=== PATIENT | female | born 1960 | race Caucasian/White ===

== ENCOUNTER → 2016-07-18 | Outpatient (CLI) | payer BC ==
[~2016-07-18] MED LIST: ACET-3088 PO; ATEN1TAB3 PO; ATOR40TA64 PO; DICL75TA5 PO; LISI10TA7 PO
[2016-07-18 15:31] LABS: ALBUMIN 4.5 G/DL (3.5-5.0); ALBUMIN/GLOBULIN RATIO 1.4 RATIO (1.1-2.2); ALKALINE PHOSPHATASE 161 U/L (38-126); ALT (SGPT) 85 U/L (9-52); ANION GAP 13 MEQ/L (5-15); AST (SGOT) 44 U/L (14-36); BUN/CREATININE RATIO 22 RATIO (6-26); CALCIUM 9.6 MG/DL (8.4-10.2); CHLORIDE 104 MEQ/L (98-107); CO2 - CARBON DIOXIDE 24 MEQ/L (22-30); GLOMERULAR FILTRATION RATE 57; GLUCOSE 109 MG/DL (65-110); SODIUM 141 MEQ/L (134-144); TOTAL PROTEIN 7.7 G/DL (6.3-8.2)
== END ==
LOC: LAB 14:54
PROVIDERS: ATTEND Registered Nurse
DX: R79.89 Other specified abnormal findings of blood chemistry (principal)
CPT/HCPCS: 36415; 80053

== ENCOUNTER 2016-07-22 10:09 | Inpatient (IN) | payer BC, OTHER ==
--- NOTE | 2016-06-24 16:11 | NUR ---
JOINT REPLACEMENT PREOP CLASS PATIENT ATTENDED JOINT REPLACEMENT PREOP CLASS. CASE MANAGEMENT CONTACT INFORMATION PROVIDED. EDUCATION WAS PROVIDED REGARDING WHAT TO EXPECT BEFORE, DURING AND AFTER SURGERY. INCLUDING: OVERVIEW OF ANATOMY AND PHYSIOLOGY HOSPITAL TREATMENT SCHEDULE THERAPY DEMONSTRATION CASE MANAGEMENT RESPONSIBILITIES DISCHARGE PLANNING EQUIPMENT NEEDS JOINT REPLACEMENT WORKBOOK ANTI-COAGULATION SURGERY STRONG NUTRITIONAL PROTOCOL DISCHARGE INSTRUCTIONS [facility] PATIENT PORTAL, WITH INSTRUCTIONS CJR AND PREOP SURVERY PREOP BATHING- CHG GIVEN ALL PATIENT'S QUESTIONS ANSWERED TO THEIR SATISFACTION. PATIENTS AND COACHES ENCOURAGED TO CALL WITH ANY ADDITIONAL QUESTIONS OR CONCERNS. CM FOLLOWING FOR TRANSITIONAL CARE PLANNING NEEDS DURING HOSPITALIZATION.
--- NOTE | 2016-07-09 13:29 | NUR ---
PMH, allergies, meds reviewed and documented. Preop and DOS instructions reviewed and patient has received handouts of medications to stop before surgery, shower instructions and CHG soap, letter from Dr Boone, ortho consent, Surgical Services pamphlet and my contact information. Patient was instructed to stop smoking kameron due to increased risk of infection. She declines smoking cessation classes.
--- NOTE | 2016-07-16 08:43 | NUR ---
Nickel allergy Dr Boone notified of call from patient yesterday stating she reacts to nickel jewelry. Dr Boone wishes to visit with patient in office today if possible. Stacy in OR notified he may need to use Moneylib and Cool Lumens implant. Patient has been called in to work, will call me back when she knows more about possible appointment with Dr Boone at 1300 today. Addendum: 07/16/16 at 1539 by SORIN DWYER RN Patient was unable to make appointment today, Dr Boone did call the patient. He may use a ceramic head from [employer] and Cool Lumens. Stacy in OR notified.
--- NOTE | 2016-07-21 14:04 | NUR ---
PREOP CALL [facility] CALLED AND INFORMED ME THEY HAD SENT THE PATIENT'S EKG TO DR FINN WHO RESPONDED TO THEM THIS MORNING AND RECOMMENDED THE PATIENT HAVE A CARDIAC WORKUP PRIOR TO SURGERY. I DID INFORM DR UP WHO SAID TO CANCEL THE SURGERY AND GET THE PATIENT RESCHEDULED AFTER THE CARDIAC WORKUP. I LET [facility] KNOW AND THEY WILL GET HER SCHEDULED WITH A NEUROLOGY TEACHER [place] SO SHE CAN HAVE HER SURGERY RESCHEDULED
[~2016-07-22] VITALS: Ht 172.7 cm; Wt 115.4 kg
[~2016-07-22 10:09] MED LIST changes: +ACETAMINOPHEN 500 MG TABLET PO ONE; +DEXAMETHASONE 4mg/ml - 1ml INJECTION IV ONE; +EPINEPHRINE 0.25 MG, BUPIVACAINE 0.25% 75 MG, KETOROLAC 60 MG in NORMAL SALINE 30 ML INJ ONE; +FAMOTIDINE 20mg IVPB 50 ML IV ONE; +LIDOCAINE 1% (10mg/ml) 2ml SDV SQ ONE; +LR 1,000 ML IV SCH; +METOCLOPRAMIDE 10mg/2ml INJECTION IV ONE; +NOZIN NASAL SWAB NS ONE; +ONDANSETRON 4mg/2ml INJECTION IV ONE
[2016-07-22] MEDS ORDERED: TRANEXAMIC ACID 1,000 MG in NORMAL SALINE 100 ML IV ONE ×2 (10:15→11:15)
[2016-07-22] MEDS ORDERED: CLINDAMYCIN 900mg IVPB 50 ML IV ONE (10:15)
[2016-08-05] VITALS (23 sets, daily range): BP systolic 104–148; BP diastolic 55–85; PULSE 65–89; RESP 14–18; TEMP 96.4–98.8; O2SAT 94–100; Ht 172.7 cm; Wt 115.4 kg
[2016-08-05] MEDS ORDERED: FAMOTIDINE 20mg IVPB 50 ML IV ONE (06:00)
[2016-08-05] MEDS ORDERED: LIDOCAINE 1% (10mg/ml) 2ml SDV ID ONE (06:00)
[2016-08-05] MEDS ORDERED: METOCLOPRAMIDE 10mg/2ml INJECTION IV ONE (06:00)
[2016-08-05] MEDS ORDERED: NOZIN NASAL SWAB NS ONE ×2 (07:00→16:30)
[2016-08-05] MEDS ORDERED: ACETAMINOPHEN 500 MG TABLET PO ONE (07:00)
[2016-08-05] MEDS ORDERED: LR 1,000 ML IV PRN (07:00)
[2016-08-05] MEDS ORDERED: DEXAMETHASONE 4mg/ml - 1ml INJECTION IV ONE (07:00)
[2016-08-05] MEDS ORDERED: ONDANSETRON 4mg/2ml INJECTION IV ONE (07:00)
--- OUTSIDE RECORDS SUMMARY | 2016-08-05 10:31 | XMS REPORT ---
Author Author Candace Marquez Organization eClinicalWorks Address Unknown Phone Unavailable Care Team Providers Care Information Technology Internship Name Role Phone Candace Marquez CP Unavailable Allergies No Known Allergies Problems Problem Type Condition Code Onset Dates Condition Status Assessment Essential (primary) hypertension I10 Active Problem Mixed hyperlipidemia 272.2 Active Assessment Mixed hyperlipidemia E78.2 Active Assessment Chronic fatigue R53.82 Active Assessment Major depressive disorder, single episode, unspecified F32.9 Active Problem Essential (primary) hypertension I10 Active Problem Major depressive disorder, single episode, unspecified F32.9 Active Problem Mixed hyperlipidemia E78.2 Active Problem Hypertension, benign 401.1 Active Problem Pain in joint, other specified sites 719.48 Active Problem Chronic fatigue R53.82 Active Problem Carpal tunnel syndrome 354.0 Active Medications Medication Code System Code Instructions Start Date End Date Status Dosage Tylenol Arthritis Pain [facility] [address]-95 650 MG Orally TID not defined Atenolol-Chlorthalidone [facility] [address]-56 50-25 MG Orally Once a day 1 tablet Diclofenac Sodium [facility] 33552350058 75 TAKE ONE TABLET BY MOUTH TWICE A DAY Pravastatin Sodium [facility] [address]-68 40 MG Orally Once a day 1 1/ 2 tablet, total 60 mg Lisinopril [facility] [address]-97 10 MG Orally Once a day 1 tablet Procedures Procedure Coding System Code Date TSH CPT-4 06485 Mar 11, 2016 COMPREHENSIVE METABOLIC PANEL CPT-4 34954 Mar 11, 2016 COMPLETE CBC W/AUTO DIFF WBC CPT-4 84988 Mar 11, 2016 LIPID PANEL CPT-4 40204 Mar 11, 2016 Results No Known Results Summary Purpose eClinicalWorks Submission
--- OUTSIDE RECORDS SUMMARY | 2016-08-05 10:31 | XMS REPORT ---
Author Author Candace Marquez [facility] eClinicalWorks Address Unknown Phone Unavailable Care Team Providers Care Protector Plate Attacher Name Role Phone Candace Marquez Unavailable Allergies No Known Allergies Problems Problem Type Condition ICD-9 Code Onset Dates Condition Status Problem Hypertension, benign 401.1 Active Problem Pain in joint, other specified sites 719.48 Active Problem Carpal tunnel syndrome 354.0 Active Problem Mixed hyperlipidemia 272.2 Active Medications Medication Code System Code Instructions Start Date End Date Status Dosage Diclofenac Sodium [facility] [address]-65 75 Active TAKE ONE TABLET BY MOUTH THREE TIMES DAILY Vital Signs Date/Time: July 19, 2013 Height 68 inches Weight 286.8 lbs Temperature 98.6 F Blood Pressure Diastolic 88 mm Hg Blood Pressure Systolic 130 mm Hg Cardiac Monitoring Heart Rate 64 Beats per Minute BMI 43.60 Index Respiratory Rate 16 per Minute Results No Known Results Summary Purpose eClinicalWorks Submission
--- OUTSIDE RECORDS SUMMARY | 2016-08-05 10:31 | XMS REPORT ---
Author Author Candace Marquez [facility] eClinicalWorks Address Unknown Phone Unavailable Care Team Providers Care Business Systems Architect Name Role Phone Candace Marquez Unavailable Allergies No Known Allergies Problems Problem Type Condition ICD-9 Code Onset Dates Condition Status Problem Hypertension, benign 401.1 Active Problem Pain in joint, other specified sites 719.48 Active Problem Carpal tunnel syndrome 354.0 Active Problem Mixed hyperlipidemia 272.2 Active Medications Medication Code System Code Instructions Start Date End Date Status Dosage Pravastatin Sodium [facility] [address]-56 40 MG Orally Once a day Active 1 1/2 tablet, total 60 mg Vital Signs Date/Time: May 16, 2014 Height 68 inches Weight 281.14 lbs Temperature 98.5 F Blood Pressure Diastolic 80 mm Hg Blood Pressure Systolic 126 mm Hg Cardiac Monitoring Heart Rate 70 Beats per Minute BMI 42.74 Index Respiratory Rate 16 per Minute Results No Known Results Summary Purpose eClinicalWorks Submission
--- OUTSIDE RECORDS SUMMARY | 2016-08-05 10:31 | XMS REPORT ---
Author Author Candace Marquez [facility] eClinicalWorks Address Unknown Phone Unavailable Care Team Providers Care Driving Teacher Name Role Phone Candace Marquez Unavailable Allergies No Known Allergies Problems Problem Type Condition ICD-9 Code Onset Dates Condition Status Problem Hypertension, benign 401.1 Active Problem Pain in joint, other specified sites 719.48 Active Problem Carpal tunnel syndrome 354.0 Active Problem Mixed hyperlipidemia 272.2 Active Medications Medication Code System Code Instructions Start Date End Date Status Dosage Diclofenac Sodium [facility] [address]-49 75 MG Orally Twice a day Dec 26, 2014 May 11, 2015 1 tablet Results No Known Results Summary Purpose eClinicalWorks Submission
--- OUTSIDE RECORDS SUMMARY | 2016-08-05 10:31 | XMS REPORT ---
Author Author Candace Marquez Organization eClinicalWorks Address Unknown Phone Unavailable Care Team Providers Care Warper Fixer Name Role Phone Candace Marquez Unavailable Allergies [...] Diclofenac Sodium [facility] [address]-53 75 MG Orally Twice a day Dec 26, 2014 Jan 25, 2015 2 tablets in am, 1 in pm Results No Known Results Summary Purpose eClinicalWorks Submission
--- OUTSIDE RECORDS SUMMARY | 2016-08-05 10:31 | XMS REPORT ---
Author Author Candace Marquez Organization eClinicalWorks Address Unknown Phone Unavailable Care Team Providers Care Contact Lens Lathe Operator Name Role Phone Candace Marquez CP Unavailable Allergies, Adverse Reactions, Alerts Substance Reaction Event Type Sulfa unsure Drug Allergy Codeine Sulfate rash, difficulty breathing Drug Allergy Problems Problem Type Condition Code Onset Dates Condition Status Assessment Essential (primary) hypertension I10 Active Problem Mixed hyperlipidemia 272.2 Active Assessment Mixed hyperlipidemia E78.2 Active Problem Essential (primary) hypertension I10 Active Problem Major depressive disorder, single episode, unspecified F32.9 Active Problem Mixed hyperlipidemia E78.2 Active Problem Hypertension, benign 401.1 Active Problem Pain in joint, other specified sites 719.48 Active Problem Chronic fatigue R53.82 Active Problem Carpal tunnel syndrome 354.0 Active Assessment Chronic fatigue R53.82 Active Assessment Major depressive disorder, single episode, unspecified F32.9 Active Assessment Primary osteoarthritis of both knees M17.0 Active Medications Medication Code System Code Instructions Start Date End Date Status Dosage Lisinopril [facility] [address]-10 10 MG Orally Once a day 1 tablet Pravastatin Sodium [facility] [address]-29 40 MG Orally Once a day 1 1/ 2 tablet, total 60 mg Atenolol-Chlorthalidone [facility] [address]-98 50-25 MG Orally Once a day 1 tablet Tylenol Arthritis Pain [facility] [address]-24 650 MG Orally TID not defined Diclofenac Sodium [facility] 18525667996 75 TAKE ONE TABLET BY MOUTH TWICE A DAY Procedures Procedure Coding System Code Date OFFICE VISIT, EST-MOD. COMPLEXITY (25 MIN) CPT-4 65947 Mar 11, 2016 Vital Signs Date/Time: Mar 11, 2016 Temperature 98.4 F Height 68 in Weight 253 lbs Blood Pressure Diastolic 92 mm Hg Blood Pressure Systolic 140 mm Hg Cardiac Monitoring Heart Rate 54 /min BMI 38.46 Index Oximetry 98 % Respiratory Rate 16 /min Results No Known Results Summary Purpose eClinicalWorks Submission
--- OUTSIDE RECORDS SUMMARY | 2016-08-05 10:31 | XMS REPORT ---
Author Author Candace Marquez [facility] eClinicalWorks Address Unknown Phone Unavailable Care Team Providers Care Vending Machine Servicer Name Role Phone Candace Marquez Unavailable Allergies No Known Allergies Problems Problem Type Condition ICD-9 Code Onset Dates Condition Status Problem Hypertension, benign 401.1 Active Problem Pain in joint, other specified sites 719.48 Active Problem Carpal tunnel syndrome 354.0 Active Problem Mixed hyperlipidemia 272.2 Active Medications No Known Medications Results No Known Results Summary Purpose eClinicalWorks Submission
--- OUTSIDE RECORDS SUMMARY | 2016-08-05 10:31 | XMS REPORT ---
Author Author Candace Marquez [facility] eClinicalWorks Address Unknown Phone Unavailable Care Team Providers Care Junior Php Developer Name Role Phone Candace Marquez Unavailable Allergies No Known Allergies Problems Problem Type Condition Code Onset Dates Condition Status Problem Hypertension, benign 401.1 Active Problem Pain in joint, other specified sites 719.48 Active Problem Carpal tunnel syndrome 354.0 Active Problem Mixed hyperlipidemia 272.2 Active Medications Medication Code System Code Instructions Start Date End Date Status Dosage Diclofenac Sodium [facility] [address]-76 75 MG Orally Twice a day Dec 26, 2014 September 08, 2015 1 tablet Results No Known Results Summary Purpose eClinicalWorks Submission
--- OUTSIDE RECORDS SUMMARY | 2016-08-05 10:31 | XMS REPORT ---
Author Author Candace Marquez [employer]Clinical[employer] Address Unknown Phone Unavailable Care Team Providers Care Java Lead Name Role Phone Candace Marquez CP Unavailable Allergies, Adverse Reactions, Alerts Substance Reaction Event Type Sulfa unsure Drug Allergy Codeine Sulfate rash, difficulty breathing Drug Allergy Problems Problem Type Condition ICD-9 Code Onset Dates Condition Status Assessment Personal history of arthritis V13.4 Active Problem Hypertension, benign 401.1 Active Problem Pain in joint, other specified sites 719.48 Active Problem Carpal tunnel syndrome 354.0 Active Assessment Hypertension, benign 401.1 Active Assessment Pain in joint, other specified sites 719.48 Active Problem Mixed hyperlipidemia 272.2 Active Assessment Mixed hyperlipidemia 272.2 Active Medications Medication Code System Code Instructions Start Date End Date Status Dosage Pravastatin Sodium [facility] [address]-95 40 MG Orally Once a day 1 1/ 2 tablet, total 60 mg Lisinopril [facility] [address]-70 10 MG Orally Once a day 1 tablet Atenolol-Chlorthalidone [facility] [address]-28 50-25 MG Orally Once a day 1 tablet Celebrex [facility] [address]-45 200 MG Orally Once a day Dec 19, 2014 Dec 20, 2015 1 capsule Procedures Procedure Coding System Code Date OFFICE VISIT, EST-LOW COMPLEXITY (15 MIN.) CPT-4 00610 Dec 19, 2014 Vital Signs Date/Time: Dec 19, 2014 Height 68 in Weight 276.8 lbs Temperature 98.2 F Blood Pressure Diastolic 83 mm Hg Blood Pressure Systolic 130 mm Hg Cardiac Monitoring Heart Rate 73 /min BMI 42.08 Index Results No Known Results Summary Purpose eClinicalWorks Submission
--- OUTSIDE RECORDS SUMMARY | 2016-08-05 10:32 | XMS REPORT ---
Author Author Candace Marquez Organization eClinicalWorks Address Unknown Phone Unavailable Care Team Providers Care Management Sme Name Role Phone Candace Marquez CP Unavailable Allergies No Known Allergies Problems Problem Type Condition ICD-9 Code Onset Dates Condition Status Problem Hypertension, benign 401.1 Active Problem Pain in joint, other specified sites 719.48 Active Problem Carpal tunnel syndrome 354.0 Active Assessment Hypertension, benign 401.1 Active Problem Mixed hyperlipidemia 272.2 Active Assessment Mixed hyperlipidemia 272.2 Active Medications Medication Code System Code Instructions Start Date End Date Status Dosage Atenolol-Chlorthalidone [facility] [address]-39 50-25 MG Orally Once a day 1 tablet [address]-Vitamin [facility] [address]-38 Orally dly as directed Glucosamine [address] [facility] [address]652-50639 Orally dly as directed Lisinopril [facility] [address]-01 10 MG Orally Once a day 1 tablet Fish Oil [facility] [address]-86 1000 MG Orally Once a day 1 capsule Fluticasone Propionate [facility] [address]-24 50 MCG/ACT Nasally Once a day May 16, 2014 1 spray in each nostril Fexofenadine HCl [facility] [address]-41 180 MG Orally Once a day May 16, 2014 May 11, 2015 1 tablet Pravastatin Sodium [facility] [address]-99 40 MG Orally Once a day 1 1/[address] [facility] [address]76-[address]58 8000 UNIT Orally dly not defined Procedures Procedure Coding System Code Date IH LIPID PANEL CPT-4 06212 Dec 05, 2014 COMPLETE CBC W/AUTO DIFF WBC CPT-4 58557 Dec 05, 2014 IH CMP CPT-4 65606 Dec 05, 2014 Results No Known Results Summary Purpose eClinicalWorks Submission
--- OUTSIDE RECORDS SUMMARY | 2016-08-05 10:32 | XMS REPORT ---
Author Author Candace Marquez [facility] eClinicalWorks Address Unknown Phone Unavailable Care Team Providers Care Customer Service Teller Name Role Phone Candace Marquez Unavailable Allergies No Known Allergies Problems Problem Type Condition ICD-9 Code Onset Dates Condition Status Problem Hypertension, benign 401.1 Active Problem Pain in joint, other specified sites 719.48 Active Problem Carpal tunnel syndrome 354.0 Active Problem Mixed hyperlipidemia 272.2 Active Medications Medication Code System Code Instructions Start Date End Date Status Dosage Cymbalta [facility] [address]-32 30 MG Orally Twice a day September 28, 2012 Active 1 capsule Vital Signs Date/Time: July 19, 2013 Height 68 inches Weight 286.8 lbs Temperature 98.6 F Blood Pressure Diastolic 88 mm Hg Blood Pressure Systolic 130 mm Hg Cardiac Monitoring Heart Rate 64 Beats per Minute BMI 43.60 Index Respiratory Rate 16 per Minute Results No Known Results Summary Purpose eClinicalWorks Submission
--- OUTSIDE RECORDS SUMMARY | 2016-08-05 10:32 | XMS REPORT ---
Author Author Candace Marquez Organization eClinicalWorks Address Unknown Phone Unavailable Care Team Providers Care Ice Cream Mixer Name Role Phone Candace Marquez CP Unavailable Allergies No Known Allergies Problems Problem Type Condition Code Onset Dates Condition Status Problem Mixed hyperlipidemia 272.2 Active Assessment Mixed [...] Date End Date Status Dosage Diclofenac Sodium [facility] 07142771391 75 TAKE ONE TABLET BY MOUTH TWICE A DAY Atorvastatin Calcium [facility] [address]-32 40 MG Orally Once a day Mar 26, 2016 1 1/2 tablet Atenolol-Chlorthalidone [facility] [address]-97 50-25 MG Orally Once a day 1 tablet Lisinopril [facility] [address]-99 10 MG Orally Once a day 1 tablet Tylenol Arthritis Pain [facility] [address]-54 650 MG Orally TID not defined Fish Oil [facility] [address]-29 1000 MG Orally Once a day 1 capsule Results No Known Results Summary Purpose eClinicalWorks Submission
--- OUTSIDE RECORDS SUMMARY | 2016-08-05 10:32 | XMS REPORT ---
Author Author Candace Marquez [facility] eClinicalWorks Address Unknown Phone Unavailable Care Team Providers Care Taker Away Name Role Phone Candace Marquez Unavailable Allergies No Known Allergies Problems Problem Type Condition ICD-9 Code Onset Dates Condition Status Problem Hypertension, benign 401.1 Active Problem Pain in joint, other specified sites 719.48 Active Problem Carpal tunnel syndrome 354.0 Active Problem Mixed hyperlipidemia 272.2 Active Medications Medication Code System Code Instructions Start Date End Date Status Dosage Celebrex [facility] [address]-01 200 MG Orally Once a day Dec 19, 2014 Dec 27, 2015 1 capsule Results No Known Results Summary Purpose eClinicalWorks Submission
--- OUTSIDE RECORDS SUMMARY | 2016-08-05 10:32 | XMS REPORT ---
Author Author Candace Marquez [facility] eClinicalWorks Address Unknown Phone Unavailable Care Team Providers Care Manager Sql Name Role Phone Candace Marquez Unavailable Allergies [...]
--- NOTE | 2016-08-05 12:49 | ANESPREOP ---
Anesthesia Record Date and Time DATE: 08/05/16 TIME: 12:47 Proposed Surgical Procedure RT HONEY NPO since: 1999 Allergies: Coded Allergies: Cephalosporins (Verified Allergy, Unknown, WHOLE BODY SWELLING, 08/05/16) Sulfa (Sulfonamide Antibiotics) (Verified Allergy, Unknown, ANAPHYLAXIS, ) codeine (Verified Allergy, Unknown, ANAPHYLAXIS, 08/05/16) nickel (Verified Allergy, Unknown, RASH, 08/05/16) Uncoded Allergies: BAND AID (Adverse Reaction, Unknown, RASH, BLISTERS, 07/15/16) Ht/Wt/BMI Height: 5 ' 8.00 " Weight: 113.600 kg BMI: 38.1 kg/m2 Vital Signs Date Time Temp Pulse Resp B/P Pulse Ox O2 Delivery O2 Flow Rate FiO2 08/05/16 10:54 98.8 65 16 148/71 94 Room Air Medications Inpatient Medications Current Medications Medications (Trade) Dose Ordered Sig/Madelaine Start Time Stop Time Status Last Admin Dose Admin Lactated Ringer's 1,000 ml @ 50 mls/hr Q20H 07/22/16 07:00 08/04/16 15:34 DC Lactated Ringer's (Lactated Ringers) 1,000 ml @ 50 mls/hr Q20H PRN 08/05/16 07:00 08/05/16 11:28 50 MLS/HR Acetaminophen (Tylenol Arthritis) 650 Mg Tablet.er, 2 TAB PO Q6HPRN PRN for PAIN , (Reported) Last Taken: on 08/04/16 2100 Atenolol/Chlorthalidone (Atenolol-Chlorthal 50- 25 Tb) 1 Tab Tablet, 1 TAB PO DAILY, (Reported) Last Taken: on 08/05/16 0800 Atorvastatin Calcium (Atorvastatin Calcium) 40 Mg Tablet, 60 MG PO DAILY, (Reported) Last Taken: on 08/04/16 1000 Diclofenac Sodium (Diclofenac Sodium) 75 Mg Tablet.dr, 1 TAB PO BID, (Reported) Last Taken: on 07/29/16 Lisinopril (Lisinopril) 10 Mg Tablet, 10 MG PO DAILY, (Reported) Last Taken: on 08/04/16 1000 Currently on Beta Ariel: Yes Beta Ariel Last Taken: 08/05/16 0800 Medical/Surgical History Anesthesia PMH: Reports: *Hypertension, Arthritis, Back Problems, Obesity, Other (left jaw locks up. ), Reflux (DIET CONTROLLED), Sleep Apnea (pressumptive ) Smoking Status: Current every day smoker # of Packs per Day: 0.5 # of Years: 7 Use Chewing Tobacco?: No Second Hand Exposure: No Substance Use Type: does not use Alcohol Intake: none HX of Last Menstrual Period: AGE 51 Past Surgical History Orthopedic Surgeries: Yes - RT & LT KNEE SCOPES Abdominal Surgeries: Genitourinary Surgeries: Cardiac Surgeries: Endocrine Surgeries: Reproductive Surgeries: Yes - TUBAL LIGATION Neurological Surgeries: Ear Surgeries: Nose Surgeries: Throat Surgeries: Yes - TONSILLECTOMY Other Surgeries: Yes - RT & LT KNEE SCOPES Anesthesia Adverse Reactions: FOUND none Physical Exam Respiratory: Bilat breath sounds equal, Lungs clear Cardiovascular: FOUND Regular rate, rhythm Airway Assessment Mallampati Score: II TMD: 3 Fingerbreadths Neck Extension: Fair Overall Assessment: No Airway Concerns ASA: 3 Plan Anesthesia Plan: [facility]: Spinal Discussion Discussed risks/options/alternatives of anesthesia and questions answered. Patient consents. Nursing pain assessment noted. Present: Family Member Attestation Statement Prior to the delivery of any anesthetic medication, I examined the patient, developed the plan, obtained the patient's consent and discussed the risk and benefits of the procedure with the patient/guardian. SHON EPSTEIN CRNA Aug 05, 2016 12:48
[2016-08-05] MEDS ORDERED: VANCOMYCIN 1 GRAM INJECTION ONE (13:11)
[2016-08-05] MEDS ORDERED: PROPOFOL 500mg 50 ML IV ONE ×2 (13:20→15:11)
[2016-08-05] MEDS ORDERED: FENTANYL 100mcg/2ml INJECTION ONE (13:21)
[2016-08-05] MEDS ORDERED: MIDAZOLAM 2mg/2ml INJECTION ONE (13:21)
[2016-08-05] MEDS ORDERED: TRANEXAMIC ACID 1,000 MG in NORMAL SALINE 100 ML IV ONE ×2 (13:30→14:30)
[2016-08-05] MEDS ORDERED: CLINDAMYCIN 900mg IVPB 50 ML IV ONE (13:30)
[2016-08-05] MEDS ORDERED: EPHEDRINE SULFATE 50mg/ml INJECTION ONE (14:01)
[2016-08-05] MEDS ORDERED: SALINE FLUSH 10ml SYRINGE ONE (14:15)
[2016-08-05] MEDS ORDERED: PHENYLEPHRINE 10mg/ml INJECTION ONE (14:15)
[2016-08-05] MEDS ORDERED: EPINEPHRINE 0.25 MG, BUPIVACAINE 0.25% 75 MG, KETOROLAC 60 MG in NORMAL SALINE 30 ML INJ ONE (14:30)
[2016-08-05] MEDS ORDERED: EPINEPHRINE 0.25 MG, BUPIVACAINE 0.25% 75 MG, MORPHINE SULFATE 15 MG, KETOROLAC 60 MG i... INJ ONE ×5 (14:30)
--- NOTE | 2016-08-05 15:34 | PDOPERATE ---
Operative Report Date of Operation 08/05/16 Side: Right Preoperative Diagnosis: hip primary DJD Postoperative Diagnosis Same as preoperative diagnosis. Operation/Procedure: total hip arthroplasty (right) Surgeon Kiara Boone MD Writer Producer OC Cason Complications None. Regional Block: Spinal Estimated Blood Loss See Anesthesia Record. Fluids Please See Anesthesia Record. Description of Operation Ms. Cleary and her right hip were identified and marked in the the preoperative holding area. She was then brought back to the operating suite and proper anesthesia was administered. She was then positioned lateral on the operating table. The right lower extremity was then prepped and draped in my normal sterile fashion. Timeout was performed with all operating room personnel. Pertinent plating shoe measured approximately 8 mm short on the table she felt significantly shorter than that at the knees at least 2 or 3 inches. Vital ecchymosis was coming from her spine. She had very large body habitus which made surgery more difficult. Large posterior approach was utilized. Skin incision was followed down to the simultaneous tissue to the muscle fascia was then split in line with skin incision. Bursal tissue was removed and the external rotators were identified and piriformis was detached and tagged. Capsulotomy was performed and the hip dislocated. The neck osteotomy was made once the medial proximal to the lesser trochanter. The head was removed. The acetabulum was exposed and labrum removed. I then sequentially reamed to a size 53 and placed a 54 cup in 20 of anteversion and 40 of tilt. The proximal femur was then prepared the cookie cutter followed by reaming and broaching to a size 8. We trialed with 127 neck and a 0 head. This was good but she did seem to impinge anteriorly. I removed some anterior osteophytes after this she no longer impinged. Leg length again was difficult to assess at the knees due to her previous inequality. Both are currently she felt stable and well balanced. Final size 8 secure fit stem 127 neck was placed trialing and a 0 head and this was good so final 0 ceramic 36 mm head was placed followed by a final reduction. Joint cocktail was injected throughout soft tissue. Betadine solution was placed into the joint allowed to sit for 3 minutes before being irrigated out. The capsulotomy was repaired with Ethibond the piriformis was also repaired with Ethibond. 1 g vancomycin powder was placed into the joint. The muscle fascia was repaired with #1 Vicryl. #1 Vicryl was also used in the fatty layer. My product development assistant then closed the simultaneous tissue with 2-0 Vicryl followed by running 4-0 Monocryl and Dermabond on the skin. A incisional wound VAC replaced because her expense of her excessive lateral soft tissue thickness. She'll limiting to the recovery room in the care of anesthesia she tolerated procedure well and there were no complications. ELKE BOONE MD Aug 05, 2016 15:34
[2016-08-05] MEDS ORDERED: PROPOFOL 200mg 20 ML IV ONE (15:50)
--- NOTE | 2016-08-05 16:16 | ANESPO ---
Post-Op Note Date 08/05/16 Time: 16:15 Status Pt Participated in Evaluation: Pt participated in person Vital Signs Date Time Temp Pulse Resp B/P Pulse Ox O2 Delivery O2 Flow Rate FiO2 08/05/16 10:54 98.8 65 16 148/71 94 Room Air Respiratory Function: Airway patent Cardiovascular Function: Regular pulse Telemetry Pattern: SR Mental Status: Alert/oriented Pain Level Intensity: 0 Unable to Assess Pain Due To: INTRA OP Hydration: IV infusing Complications during Recovery None apparent Follow-Up Instructions Instructions Per Surgeon CELNIA LEMUS MESH MAN Aug 05, 2016 16:16
[2016-08-05] MEDS ORDERED: SENNOSIDES 8.6 MG TABLET PO PRN (16:30)
[2016-08-05] MEDS ORDERED: DiphenhydrAMINE 50 MG/ML INJECTION IV PRN (16:30)
[2016-08-05] MEDS ORDERED: METOCLOPRAMIDE 10mg/2ml INJECTION IV PRN (16:30)
[2016-08-05] MEDS ORDERED: DiphenhydrAMINE 25 MG CAPSULE PO PRN (16:30)
[2016-08-05] MEDS ORDERED: LORAZEPAM 1 MG TABLET PO PRN (16:30)
[2016-08-05] MEDS ORDERED: PRN ORDERS MC (16:30)
[2016-08-05] MEDS ORDERED: ONDANSETRON 4mg/2ml INJECTION IV PRN (16:30)
--- NOTE | 2016-08-05 16:58 | NUR ---
Admit Pt transferred via slideboard from cart to bed. VS stable on RA. Pts family present upon transfer. Side rails up X2, call light w/in reach, bed alarm on.
[2016-08-05] MEDS: NORMAL SALINE 1,000 ML IV SCH (17:06)
[2016-08-05] MEDS: OXYCODONE I.R. 5 MG TABLET PO PRN ×2 (17:31→20:47)
[2016-08-05] MEDS: ACETAMINOPHEN 325 MG TABLET PO SCH ×2 (17:47→22:03)
--- NOTE | 2016-08-05 18:31 | NUR ---
Summary Pts VS stable on RA. Pt up working with therapy at this time. Family has been present in the room. Wound vac in place to the right hip. Pt rated pain a 7/10 scheduled Tylenol given, 2 oxicodone prn tablets given. Pt has denied nausea. Ice pack in place to the right hip.
[2016-08-05] MEDS: CLINDAMYCIN 900mg IVPB 50 ML IV SCH (20:08)
[2016-08-05] MEDS ORDERED: SENNOSIDES 8.6 MG TABLET PO SCH (22:00)
[2016-08-05] MEDS: NOZIN NASAL SWAB NS SCH (22:00)
[2016-08-05] MEDS: DICLOFENAC SODIUM 25 MG PO SCH (22:01)
[2016-08-05] MEDS: ASPIRIN *EC* 325mg TABLET PO SCH (22:01)
[2016-08-06] VITALS (7 sets, daily range): BP systolic 106–136; BP diastolic 59–68; PULSE 62–72; RESP 16–20; TEMP 97.6–97.9; O2SAT 95–96
[2016-08-06] MEDS: CLINDAMYCIN 900mg IVPB 50 ML IV SCH ×2 (01:44→08:36)
[2016-08-06] MEDS: OXYCODONE I.R. 5 MG TABLET PO PRN ×3 (01:47→10:44)
[2016-08-06 05:21] LABS: HCT - HEMATOCRIT 30.2 % (36-46); HGB - HEMOGLOBIN 9.9 GM/DL (12-16); MEAN CORPUSCULAR HGB 29.6 UUG (26-34); MEAN CORPUSCULAR HGB CONC(MCHC 32.8 GM/DL (31-37); MEAN CORPUSCULAR VOLUME 90.1 UM3 (80-100); MEAN PLATELET VOLUME 10.4 UM3 (9.4-12.4); RED BLOOD COUNT 3.35 M/MM3 (4.00-5.20); WBC - WHITE BLOOD COUNT 11.8 T/MM3 (4.5-11.0)
[2016-08-06 05:27] LABS: ANION GAP 10 MEQ/L (5-15); BUN/CREATININE RATIO 24 RATIO (6-26); CALCIUM 8.6 MG/DL (8.4-10.2); CHLORIDE 105 MEQ/L (98-107); CO2 - CARBON DIOXIDE 25 MEQ/L (22-30); CREATININE 0.9 MG/DL (0.7-1.2); GLOMERULAR FILTRATION RATE 65; GLUCOSE 132 MG/DL (65-110); SODIUM 140 MEQ/L (134-144)
[2016-08-06] MEDS: NORMAL SALINE 1,000 ML IV SCH (06:28)
[2016-08-06] MEDS: NOZIN NASAL SWAB NS SCH ×2 (06:30→14:20)
[2016-08-06] MEDS: ACETAMINOPHEN 325 MG TABLET PO SCH ×2 (08:28→13:19)
[2016-08-06] MEDS: ASPIRIN *EC* 325mg TABLET PO SCH (08:29)
[2016-08-06] MEDS: DICLOFENAC SODIUM 25 MG PO SCH (08:31)
--- NOTE | 2016-08-06 08:54 | DI ---
Indication: ITS.REASON: POST RIGHT HIP ARTHROPLASTY PROCEDURE: PELVIS W/1 VIEW RT HIP: Encounter: Initial Comparison: None Findings: Postoperative changes of right total hip replacement are seen. There is expected postoperative subcutaneous gas. No evidence of hardware failure or acute fracture. No retained radiopaque surgical instruments or sponges seen. Impression: New right total hip prosthesis without evidence of immediate complication. .
[2016-08-06] MEDS ORDERED: DOCUSATE SODIUM 100 MG CAPSULE PO SCH (09:00)
[2016-08-06] MEDS ORDERED: LISINOPRIL 10 MG TABLET PO SCH (09:00)
[2016-08-06] MEDS ORDERED: ATORVASTATIN 20 MG TABLET PO SCH (09:00)
[2016-08-06] MEDS ORDERED: ATENOLOL/CHLORTHALIDONE 50 MG/25 MG TABLET PO SCH (09:00)
[2016-08-06] MEDS ORDERED: POLYETHYL.GLYCOL 3350 PACKET 17gm PO SCH (09:00)
--- NOTE | 2016-08-06 09:21 | NUR ---
CM CM IN TO VISIT WITH PT. SHE IS ALERT AND ORIENTED. A FEMALE FAMILY MEMBER IS PRESENT. PT PLANS TO DC HOME. SHE WILL DO OUTPT PT AT [facility]. HER DAUGHTER WILL BE ABLE TO DRIVE HER. SHE HAS FWW AND IS GIVEN HIP KIT. LACE SCORE IS 6. PT IS GIVEN CM CONTACT INFORMATION. Addendum: 08/06/16 at 0922 by PENG RAMIREZ RN Amended: Links added.
--- NOTE | 2016-08-06 09:22 | PDORTHOPN ---
Subjective Date DATE: 08/06/16 TIME: 09:17 Subjective Arlen is doing well. She is up working with PT / OT this AM. Her operative leg is short but is likely due to multiple factors. Pain is well controlled with the PO pain meds. Denies CP or breathing issues. Objective Vital Signs Vital signs Vital Signs 08/05/16 08/06/16 08/06/16 08/06/16 21:46 00:00 04:21 07:14 Temp 96.8 97.9 97.8 97.7 Pulse 74 72 62 63 Resp 16 20 20 16 B/P 111/55 121/68 107/59 106/64 Pulse Ox 94 95 95 O2 Delivery Room Air Room Air Room Air Height (Feet): 5 Height (Inches): 8.00 Weight (Kilograms): 115.400 General General Appearance: No Acute Distress Respiratory (Brief) Respiratory Brief: FOUND: non-labored Musculoskeletal (Brief) Hip: FOUND unequal leg length (Has knee contracture, spine deformity and lilkely some shortening at the hip.) Surgical Site Incision: FOUND: dressing intact (Pt has an incisional vac in place.), no drainage Neurologic (Brief) Neurological Brief: FOUND: extremities w/o deficits, neuro intact Psychiatric (Brief) Psychiatric Brief: FOUND: alert, no acute distress Laboratory Laboratory Laboratory Tests 08/06/16 04:53 Laboratory Tests 08/06/16 04:53 Assessment & Plan Problems: (1) Degenerative arthritis of hip Status: Chronic Qualifiers: Osteoarthritis type: primary Laterality: right Qualified Codes: M16.11 - Unilateral primary osteoarthritis, right hip Assessment & Plan: Aspirin protocol for VTE prophylaxis. SCD's and mobilization for added DVT coverage. Hold any heel lifts until seen at 3 weeks. Cont Incisional vac. PT/OT services to improve independent function. Discharge Planning per Case Management. (2) Gait instability Status: Chronic Assessment & Plan: Multi-factorial Hospital Course Summary Disclaimer The visit summary below is not to be considered part of the above Progress Note. ARIEL ZEPEDA Aug 06, 2016 09:21
--- NOTE | 2016-08-06 13:19 | NUR ---
Pain Pt rating pain a 6/10 with scheduled Tylenol being given and PRN oxicodone. Pt stated the pain level is tolerable. This RN discussed pain control with the Pt and if the need be this RN could contact the physician for different pain medications if she felt they were not controlling the pain well. The Pt stated "No, I feel like they are controlling the pain and I feel way better now than I did a couple of months ago and when I leave here I probably wont take anything for the pain anyways." Will continue to monitor.
[2016-08-06] MEDS ORDERED: POLY17PO18 PO (13:53)
[2016-08-06] MEDS ORDERED: ASPI-917 PO (13:53)
[2016-08-06] MEDS ORDERED: OXYC5TAB84 PO (13:53)
--- NOTE | 2016-08-06 14:14 | DSPDOC ---
General Date Date DATE: 08/06/16 TIME: 14:13 Attending Physician Ricardo Boone MD Admitting Physician Ricardo Boone MD Consulting Physician Admitting Diagnosis PRIMARY DEGENERATIVE JOINT DISEASE RIGHT HIP Discharge Diagnosis primary DJD right hip Procedures right total hip arthroplasty Diagnosis Right hip primary DJD History of Present Illness HPI Elements This patient was admitted for elective surgical tx of end stage degenerative joint disease that failed to respond to conservative treatment. Further details of this is found in the admission H&P. Hospital Course After appropriate preoperative clearance and signing of operative consent, the patient was given IV antibiotics, according to orthopedic protocol. The patient was taken to the operating room and underwent elective joint arthroplasty. Following surgery, antibiotics were discontinued less than 24 hours according to joint protocol. Appropriate anticoagulants were initiated and SCDs added for DVT prevention. The dressing was clean, dry, and intact. Pain control was obtained via multimodal approach. Bowel motivation addressed with scheduled and PRN medications. Early mobilization was initiated through PT services. Discharge arrangements made by a collaborative effort between the patient and Case Management. Follow-up is scheduled in 2-3 weeks. Discharge instructions given by orthopedic providers and nursing staff at discharge. Discharge condition was good. Problems: (1) Degenerative arthritis of hip Status: Chronic Assessment & Plan: Aspirin protocol for VTE prophylaxis. SCD's and mobilization for added DVT coverage. Hold any heel lifts until seen at 3 weeks. Cont Incisional vac. PT/OT services to improve independent function. Discharge Planning per Case Management. (2) Gait instability Status: Chronic Assessment & Plan: Multi-factorial Associated Postoperative Event: Acute P.O. Anemia Acute P.O. Anemia: Patient received IVF, No intervention required, HGB drop- acceptable range Laboratory Laboratory Tests Test 08/06/16 04:53 White Blood Count 11.8T/MM3 Red Blood Count 3.35M/MM3 Hemoglobin 9.9GM/DL Hematocrit 30.2% Mean Corpuscular Volume 90.1UM3 Mean Corpuscular Hemoglobin 29.6UUG Mean Corpuscular Hemoglobin Concent 32.8GM/DL RDW Standard Deviation 42.1FL Platelet Count 215T/MM3 Mean Platelet Volume 10.4UM3 Turbidity < 20 Sodium Level 140MEQ/L Potassium Level 4.0MEQ/L Chloride Level 105MEQ/L Carbon Dioxide Level 25MEQ/L Anion Gap 10MEQ/L Blood Urea Nitrogen 22.0MG/DL Creatinine 0.9MG/DL Glomerular Filtration Rate Calc 65 BUN/Creatinine Ratio 24RATIO Glucose Level 132MG/DL Calculated Osmolality 274MOSM/KG Calcium Level 8.6MG/DL Icterus Index < 2 Chemistry Specimen Hemolysis < 15 Home Meds Active Scripts Polyethylene Glycol 3350 (Healthylax) 17 Gm Powd.pack, 17 G PO DAILY, #30 PACKET Prov:EDUARDO CALLE 08/06/16 Oxycodone HCl (Oxycodone HCl) 5 Mg Tablet, 5-15 MG PO Q3H Y for BREAKTHROUGH PAIN, #60 TAB Prov:EDUARDO CALLE 08/06/16 Aspirin *EC* (Aspirin EC) 325 Mg Tablet.dr, 325 MG PO BID, #84 TAB Prov:EDURADO CALLE 08/06/16 Reported Medications Atenolol/Chlorthalidone (Atenolol-Chlorthal 50-25 Tb) 1 Tab Tablet, 1 TAB PO DAILY, TAB 07/15/16 Acetaminophen (Tylenol Arthritis) 650 Mg Tablet.er, 2 TAB PO Q6HPRN Y for PAIN, TAB 07/09/16 Lisinopril (Lisinopril) 10 Mg Tablet, 10 MG PO DAILY for HYPERTENSION, TAB 07/09/16 Atorvastatin Calcium (Atorvastatin Calcium) 40 Mg Tablet, 60 MG PO DAILY, TAB 07/09/16 Diclofenac Sodium (Diclofenac Sodium) 75 Mg Tablet.dr, 1 TAB PO BID, TAB 07/09/16 Discharge Disposition Please refer to Case Management Notes for patient's disposition. Estimated Blood Loss EDUARDO CALLE Aug 06, 2016 14:14
--- NOTE | 2016-08-06 14:54 | NUR ---
Discharge Pt discharged at this time via ambulatory status with a walker in the company of an adult through the ER entrance. VS stable on RA. Incision vac in place to the right hip. IV catheter DC'd by JAIR Alvarez. Pts personal belonginings sent with Pt. Discharge packet and instructions gone over with Pt. This RN discussed medications, restrictions, activity, diet, and follow up appts. Prescriptions sent with Pt to take to preferred pharmacy.
[2016-08-07] MEDS ORDERED: MILK OF MAGNESIA 30 ML SUSP PO SCH (08:00)
--- NOTE | 2016-08-07 11:08 | NUR ---
CM CONTACTED PATIENT FOR POST HOSPITAL FOLLOW UP PHONE CALL, ASKED THE FOLLOWING QUESTIONS FOR DR UP: 1. PAIN AT REST: 4 2. PAIN WITH ACTIVITY: 6 3. ANTICOAGULATION: ASA 325MG BID 4. PAIN MEDICATION: OXYCODONE AND ARTHRITIS MED 5. BM: YES SHE STATES THAT SHE IS DOING WELL AND IS THANKFUL.
[2016-08-07] MEDS ORDERED: BISACODYL 10 MG SUPPOSITORY RECTALLY SCH (20:00)
== END 2016-08-06 14:54 | disposition home health service (06) | DRG 470 ==
LOC: SRG 08-05 10:26
PROVIDERS: ADMIT Orthopaedic Surgery; ATTEND Orthopaedic Surgery
PROC: 0SR904A Replacement of Right Hip Joint with Ceramic on Polyethylene Synthetic Substitute, Uncemented, Open Approach (ICD-10-PCS; principal; 2016-08-05 14:09)
DX: M16.11 Unilateral primary osteoarthritis, right hip (principal); M21.751 Unequal limb length (acquired), right femur; R26.89 Other abnormalities of gait and mobility; M21.061 Valgus deformity, not elsewhere classified, right knee; M21.062 Valgus deformity, not elsewhere classified, left knee; M17.0 Bilateral primary osteoarthritis of knee; M81.0 Age-related osteoporosis without current pathological fracture; D64.9 Anemia, unspecified; Z68.38 Body mass index [BMI] 38.0-38.9, adult; I10 Essential (primary) hypertension; E78.00 Pure hypercholesterolemia, unspecified; F17.210 Nicotine dependence, cigarettes, uncomplicated
CPT/HCPCS: 36415; 80048; 85027; 99406